=== PATIENT | female | born 1980 | race Caucasian/White ===

== ENCOUNTER 2017-10-05 12:07 | Day surgery (SDC) | payer OTHER ==
[~2017-10-05] VITALS: Ht 167.6 cm; Wt 122.0 kg
[~2017-10-05 12:07] MED LIST: ALEVE220 MG PO; ATARAX,VISTARIL25 MG PO; EFFEXOR XR150 MG PO; FLEXERIL10 MG PO; GABAPENTIN600 MG PO; METHADONE H5 MG/5 ML PO; NAPROSYN250 MG PO; NEURONTIN800 MG PO; OPANA ER20 MG PO; RISPERDAL2 MG PO; TUMS500 MG PO; ZOLOFT100 MG PO; ZYRTEC10 M2 PO
== END 2017-10-05 14:14 | disposition home or self-care (01) ==
LOC: PAIN 12:07 → SDC 12:30 → PAIN 12:30
DX: M47.816 Spondylosis without myelopathy or radiculopathy, lumbar region (principal); M51.36 Other intervertebral disc degeneration, lumbar region; R29.898 Other symptoms and signs involving the musculoskeletal system; F11.20 Opioid dependence, uncomplicated; F17.200 Nicotine dependence, unspecified, uncomplicated; G89.29 Other chronic pain; I70.0 Atherosclerosis of aorta; E78.2 Mixed hyperlipidemia; E66.01 Morbid (severe) obesity due to excess calories; Z68.41 Body mass index [BMI] 40.0-44.9, adult; Z88.8 Allergy status to other drugs, medicaments and biological substances; Z91.040 Latex allergy status
CPT/HCPCS: J1030; J2250; J3010; S0020

== ENCOUNTER 2017-10-12 12:06 | Day surgery (SDC) | payer OTHER ==
[~2017-10-12] VITALS: Ht 167.6 cm; Wt 121.5 kg
== END 2017-10-12 14:10 | disposition home or self-care (01) ==
LOC: PAIN 12:06 → SDC 12:30 → PAIN 14:10
PROC: BR161ZZ Fluoroscopy of Lumbar Facet Joint(s) using Low Osmolar Contrast (ICD-10-PCS; principal; 2017-10-12)
PROC: 3E0T3TZ Introduction of Destructive Agent into Peripheral Nerves and Plexi, Percutaneous Approach (ICD-10-PCS; principal; 2017-10-12)
DX: M47.816 Spondylosis without myelopathy or radiculopathy, lumbar region (principal); M51.36 Other intervertebral disc degeneration, lumbar region; E78.5 Hyperlipidemia, unspecified; E66.01 Morbid (severe) obesity due to excess calories; Z68.41 Body mass index [BMI] 40.0-44.9, adult; Z79.891 Long term (current) use of opiate analgesic; F17.200 Nicotine dependence, unspecified, uncomplicated
CPT/HCPCS: J1030; J2250; J3010; S0020